=== PATIENT | female | born 1990 | race Caucasian/White ===

== ENCOUNTER 2016-03-16 14:40 | Emergency (ER) | payer BC ==
[2016-03-16 14:58] VITALS: BP 124/66
--- NOTE | 2016-03-16 15:48 | UC ---
Neck Pain HPI - HPI Summary HPI Summary: Patient complains of neck pain after wakening 2 days ago. she states she has been unable to move her neck, has tenderness midline over the cervical spine and complains of swelling. She states she has pulled a muscle in her neck before, but this feels different. she is concerned she may have fractured something is wanting to be sure. patient is . - History of Current Complaint Chief Complaint: UCBackPain Stated Complaint: NECK PAIN Hx Obtained From: Patient Hx Last Menstrual Period: 02/09/16 ?: Yes Onset/Duration Of Injury/Symptoms: Days - 2 Mechanism Of Injury: No Known Trauma Timing: Constant Onset/Duration: Sudden Onset Severity: Severe Pain Intensity: 10 Pain Scale Used: 0-10 Numeric Location: Discrete At: - cervical spine Character: Sharp Aggravating Factors: Movement Alleviating Factors: Nothing Associated Signs & Symptoms: Positive: Negative - Risk Factors Meningitis Risk Factors: Negative Risk Factors For Cervical Spine Injury: Posterior Midline Cervical Spine Tenderness - Allergies/Home Medications Allergies/Adverse Reactions: Allergies Allergy/AdvReac Type Severity Reaction Status Date / Time Latex Allergy Rash Verified 03/16/16 14:58 Penicillins [PCN] Allergy GI Upset Verified 10/06/15 15:38 Home Medications: Home Medications Diphenhydramine-Acetaminophen [Acetaminophen/Diphenhydra 25-500 mg] 1 tab PO ONCE PRN 03/16/16 [History Confirmed 03/16/16] PMH/Surg Hx/FS Hx/Imm Hx Previously Healthy: Yes Neurological History Of: Reports: Migraine - Surgical History Surgical History: None - Family History Known Family History: Positive: Unknown, Other - denies family history of migraines - Social History Occupation: Unemployed Lives: With Family Alcohol Use: Rare Substance Use Type: None Smoking Status (MU): Never Smoked Tobacco Have You Smoked in the Last Year: No Review Of Systems Constitutional: Positive: Negative Skin: Positive: Negative Eyes: Positive: Negative Respiratory: Positive: Negative Cardiovascular: Positive: Negative Musculoskeletal: Positive: Decreased ROM - unable to flex or extend neck, unable to rotate Neurological: Positive: Negative Psychological: Positive: Negative All Other Systems Reviewed And Are Negative: Yes Physical Exam Triage Information Reviewed: Yes Appearance: Well-Appearing, Well-Nourished, Pain Distress Vital Signs: Initial Vital Signs Temp 99.3 F 03/16/16 14:49 Pulse 79 03/16/16 14:49 Resp 18 03/16/16 14:49 BP 124/66 03/16/16 14:49 Vital Signs Reviewed: Yes Eye Exam: Normal Eyes: Positive: Conjunctiva Clear ENT Exam: Normal ENT: Positive: Normal ENT inspection, Hearing grossly normal, Pharynx normal Neck exam: Normal Neck: Positive: Supple, Nontender, No Lymphadenopathy Respiratory Exam: Normal Respiratory: Positive: Chest non-tender, Lungs clear Cardiovascular Exam: Normal Musculoskeletal: Positive: Strength Intact, ROM Limited @ - cervical spine - flexion or extension limited Neurological Exam: Normal Neurological: Positive: Alert Psychological: Positive: Normal Response To Family, Age Appropriate Behavior Skin Exam: Normal Neck Pain Course/Dx - Course Course Of Treatment: Patient . POCT to confirm, as only one outpatient urine test was positive. Patient educated on risks associated with Xray for cervical spine posterior tenderness, patient agrees with plan. - Differential Dx/Diagnosis Differential Dx/HQI/PQRI: Sprain, Strain, Torticollis Provider Diagnoses: cervical strain Discharge - Discharge Plan Condition: Stable Disposition: HOME Prescriptions: Cyclobenzaprine TAB* [Flexeril TAB*] 10 mg PO BID PRN #15 tab MDD 2 PRN Reason: Pain Patient Education Materials: Cervical Strain (ED) Referrals: Ruba Reilly MD [Primary Care Provider] - Additional Instructions: Dx. Muscle Strain Flexeril: This medication is a muscle relaxant and can help relieve muscle spasms, muscle strain, or pain sensations. Flexeril can cause side effects that may impair your thinking or reactions. Be careful if you drive or do anything that requires you to be awake and alert. Avoid drinking alcohol, which can increase some of the side effects of Flexeril.
--- NOTE | 2016-03-16 16:58 | RAD ---
Indication: Posterior neck pain and swelling following changing positions in bed 2 nights ago. Comparison: None. Technique: AP, open-mouth odontoid, and lateral views cervical spine. Report: Kyphosis of the cervical spine without significant spondylolisthesis or facet subluxation at any level. Negative for fracture. Unremarkable disc spaces and prevertebral soft tissue contours. IMPRESSION: Kyphotic cervical alignment without additional abnormality.
== END 2016-03-16 17:16 | disposition home or self-care (01) ==
LOC: UCCORT 14:40
DX: S16.1XXA Strain of muscle, fascia and tendon at neck level, initial encounter (principal); X58.XXXA Exposure to other specified factors, initial encounter; Y92.9 Unspecified place or not applicable; M40.202 Unspecified kyphosis, cervical region; Z88.0 Allergy status to penicillin
CPT/HCPCS: 72040; 81025; 99212; G0463

== ENCOUNTER 2018-06-03 09:40 | Emergency (ER) | payer BC, MEDICAID ==
[2018-06-03 10:39] VITALS: BP 115/67
--- NOTE | 2018-06-03 11:03 | UC ---
UC General HPI - HPI Summary HPI Summary: PT STATES FOR THE PAST WEEK SHE IS HAVING LEFT EAR PAIN AND SINUS PAIN FOR PAST 10 DAYS. TAKING SUDAFED AND TYLENOL WHICH GIVE BRIEF RELIEF. 29 WEEKS . HX SINUSITIS AND THIS IS THE SAME. - History of Current Complaint Chief Complaint: UCRespiratory Stated Complaint: LT EAR PAIN,SINUS CONCERN Time Seen by Provider: 06/03/18 10:46 Hx Obtained From: Patient Hx Last Menstrual Period: 02/09/16 Onset/Duration: Gradual Onset Timing: Constant Pain Intensity: 5 Associated Signs & Symptoms: Negative: Fever - Allergy/Home Medications Allergies/Adverse Reactions: Allergies Allergy/AdvReac Type Severity Reaction Status Date / Time clarithromycin Allergy Hives Verified 06/03/18 10:35 latex Allergy Rash Verified 06/03/18 10:35 Penicillins Allergy GI Upset Verified 06/03/18 10:35 PMH/Surg Hx/FS Hx/Imm Hx - Additional Past Medical History Additional PMH: SINUSITIS - Surgical History Surgical History: None - Family History Known Family History: Positive: Unknown, Other - denies family history of migraines - Social History Alcohol Use: Rare Substance Use Type: None Smoking Status (MU): Never Smoked Tobacco Have You Smoked in the Last Year: No Review of Systems All Other Systems Reviewed And Are Negative: Yes ENT: Positive: Ear Ache, Nasal Discharge, Sinus Congestion, Sinus Pain/ Tenderness Gastrointestinal: Negative: Abdominal Pain Genitourinary: Negative: Vaginal/Penile Discharge, Abnormal Bleeding Physical Exam Triage Information Reviewed: Yes Appearance: Well-Appearing Vital Signs: Initial Vital Signs Temp 97.2 F 06/03/18 10:36 Pulse 101 06/03/18 10:36 Resp 16 06/03/18 10:36 BP 115/67 06/03/18 10:36 Pulse Ox 100 06/03/18 10:36 Vital Signs Reviewed: Yes Eyes: Positive: Conjunctiva Clear ENT: Positive: Pharyngeal erythema, Nasal congestion, TMs normal, Sinus tenderness - L MAXILLA, Other - CANALS CLEAR. NO AURICULAR ADENOPATHY OR MASTOID TENDERNESS. Negative: Nasal drainage Neck: Positive: Supple, Nontender, No Lymphadenopathy Respiratory: Positive: Lungs clear, Normal breath sounds, No respiratory distress Cardiovascular: Positive: RRR, No Murmur Abdomen Description: Positive: Nontender, Other: - GRAVID UTERUS Bowel Sounds: Positive: Present Musculoskeletal: Positive: ROM Intact Neurological: Positive: Alert Psychological: Positive: Age Appropriate Behavior Skin Exam: Normal Course/Dx - Course Course Of Treatment: PCN CAUSES GI UPSET BUT PT TAKES AMOXICILLIN WITH NO REACTION AND "IT WORKS WELL " FOR HER SINUSES. - Diagnoses Provider Diagnosis: Sinusitis Discharge - Sign-Out/Discharge Documenting (check all that apply): Patient Departure All imaging exams completed and their final reports reviewed: No Studies - Discharge Plan Condition: Stable Disposition: HOME Prescriptions: Amoxicillin PO (*) [Amoxicillin 875 MG (*)] 875 mg PO BID 10 Days #20 tab Patient Education Materials: Sinusitis (ED) Referrals: Ruba Reilly MD [Primary Care Provider] - 7 Days - Billing Disposition and Condition Condition: STABLE Disposition: Home - Attestation Statements Provider Attestation: I was available for consult. This patient was seen by the DANNIELLE. The patient was not presented to, seen by, or examined by me. -Selene
== END 2018-06-03 11:13 | disposition home or self-care (01) ==
LOC: UCCORT 09:40
DX: O99.513 Diseases of the respiratory system complicating pregnancy, third trimester (principal); O99.89 Other specified diseases and conditions complicating pregnancy, childbirth and the puerperium; J32.9 Chronic sinusitis, unspecified; H92.02 Otalgia, left ear; Z88.1 Allergy status to other antibiotic agents; Z91.040 Latex allergy status; Z88.0 Allergy status to penicillin; Z3A.29 29 weeks gestation of pregnancy
CPT/HCPCS: 99212; G0463